=== PATIENT | female | born 1980 | race Caucasian/White ===

== ENCOUNTER 2020-12-15 01:28 | Emergency (ER) | payer OTHER, SELFPAY ==
--- NOTE | ~2020-12-15 | XR_ITS ---
EXAMINATION: LEFT ANKLE 3 VIEWS CLINICAL INFORMATION: Left ankle pain. COMPARISON: None. TECHNIQUE: AP, lateral, oblique views of the left ankle were obtained. FINDINGS: There are no fractures or dislocations. There is no significant soft tissue swelling. No ankle joint effusion is identified. XR/XR ankle LT min 3V IMPRESSION: Unremarkable left ankle radiographs.
[2020-12-15 01:33] VITALS: BP 114/68; PULSE 74; RESP 16; TEMP 36.6; O2SAT 100; BMI 23.8
--- NOTE | 2020-12-15 02:41 | ED_ITS ---
HPI - Extremity Injury (Lower) General Chief Complaint: Extremity Injury, Lower Stated Complaint: Foot Pain Time Seen by Provider: 12/15/20 02:38 Source: patient Mode of arrival: ambulatory History of Present Illness HPI Narrative: This is a 40-year-old female who states that she was in the shower when she twisted her left ankle with subsequent pain but denies any significant swelling. She is able to carefully walk on the foot and has no other complaints at this time. She states when she fell she did not hit her head and denies any loss of consciousness. Related Data Allergies Allergy/AdvReac Type Severity Reaction Status Date / Time aripiprazole [From ABILIFY] AdvReac Intermediate vomiting, Verified 12/15/20 01:32 GI Distress Review of Systems Review of Systems: Pertinent positives and negatives as stated in HPI 10 point review of systems is otherwise negative. [facility] Past Medical History Source: nursing notes reviewed Medical History Anxiety Bipolar disorder Depression PTSD (post-traumatic stress disorder) Surgical History H/O tubal ligation Hx of section Social History Social History Advance Directives: No Physical Exam Vital Signs: Vital Signs: Last Vital Signs Temp 97.9 F 12/15/20 01:33 Pulse 74 12/15/20 01:33 Resp 16 12/15/20 01:33 BP 114/68 12/15/20 01:33 Pulse Ox 100 12/15/20 01:33 Body Mass Index 23.8 VITAL SIGNS: Reviewed. GENERAL: Well developed, well nourished, in no acute distress. HEAD: Normocephalic/atraumatic, EYES: PERRLA, EOMI OROPHARYNX: no oral lesions noted, posterior pharynx clear NECK: Supple, no adenopathy LUNGS: Normal breath sounds. SpO2<100> CARDIOVASCULAR: Regular rate and rhythm without noted murmurs ABDOMEN: Soft, non-tender, non-distended with bowel sounds. LEFT ANKLE: No swelling noted, PT/DP palpable pulses, capillary refill less than 3 sec since, some tenderness noted to lateral malleolus without midfoot tenderness NEUROLOGIC: Alert and oriented x 4. Strength and sensation to light touch were grossly intact x 4. Course Course Course Narrative: This is a 40-year-old female with history and clinical presentation consistent with ankle sprain which was further supported by ankle x-ray that was negative for dislocation or fracture. Patient was treated with combination analgesics, an Giovani wrap was applied, and patient specifically requested crutches. She underwent crutch training and was discharged in stable condition with instructions to follow-up with her primary care provider. Discharge Plan Discharge Clinical Impression: Ankle sprain Qualifiers: Encounter type: initial encounter Involved ligament of ankle: unspecified ligament Laterality: left Qualified Code(s): S93.402A - Sprain of unspecified ligament of left ankle, initial encounter Patient Disposition: Home, Self-Care Instructions: Ankle Sprain (ED), Crutch Instructions (ED) Additional Instructions: Tylenol 1000 mg, orally, every 6 hours as needed for pain control. Do not exceed 4000 mg within 24 hours. Ibuprofen 400 mg, orally with milk or flu, every 6 hours as needed for pain control. Apply ice for 15-20 minutes, 3 to 4 times a day and keep foot elevated when possible. May walk as tolerated on your injured foot. Please follow-up with your primary care provider by calling the office tomorrow morning to set up a follow-up appointment. Referrals: Physician,None [Physician] - 2 days Interventions: ED Discharge Assessment Last Done: 12/15/20 03:33 Discharge Date/Time: 12/15/20 03:34
[2020-12-15] MEDS: Ibuprofen 400 MG TABLET PO (03:17)
[2020-12-15] MEDS: Acetaminophen 325 MG TABLET 975 MG PO (03:17)
== END 2020-12-15 03:34 | disposition home or self-care (01) ==
LOC: HO.ED 03:01
PROVIDERS: Emergency Provider Student in an Organized Health Care Education/Training Program
DX: S93.402A Sprain of unspecified ligament of left ankle, initial encounter (principal); X50.1XXA Overexertion from prolonged static or awkward postures, initial encounter; Y93.E1 Activity, personal bathing and showering; Y92.012 Bathroom of single-family (private) house as the place of occurrence of the external cause; Y99.9 Unspecified external cause status
CPT/HCPCS: 73610; 99283

== ENCOUNTER 2020-12-26 15:28 | Emergency (ER) | payer OTHER, SELFPAY ==
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
[2020-12-26 16:15] VITALS: BP 109/65; PULSE 59; RESP 16; TEMP 37.1; O2SAT 98; BMI 23.8
--- NOTE | 2020-12-26 16:41 | PC.NURSE ---
ABRASIONS TO KNEE CLEANSED WITH NS, COLD PACKS APPLIED ALSO COLD PACK TO NECK
[2020-12-26] MEDS: Cyclobenzaprine HCl 5 MG TABLET PO (16:45)
[2020-12-26] MEDS: Acetaminophen 325 MG TABLET 650 MG PO (16:45)
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
== END 2020-12-26 18:25 | disposition home or self-care (01) ==
PROVIDERS: Emergency Provider Emergency Medicine
DX: G89.11 Acute pain due to trauma (principal); M54.2 Cervicalgia; M25.562 Pain in left knee; M25.561 Pain in right knee; M54.5 Low back pain; S80.211A Abrasion, right knee, initial encounter; V43.62XA Car passenger injured in collision with other type car in traffic accident, initial encounter; Y93.89 Activity, other specified; Y92.414 Local residential or business street as the place of occurrence of the external cause; Y99.9 Unspecified external cause status; F41.9 Anxiety disorder, unspecified; F31.9 Bipolar disorder, unspecified; F43.10 Post-traumatic stress disorder, unspecified; Z79.899 Other long term (current) drug therapy; F12.90 Cannabis use, unspecified, uncomplicated
CPT/HCPCS: 70450; 72125; 73564; 99284

== ENCOUNTER 2022-04-21 00:59 | Emergency (ER) | payer OTHER, SELFPAY ==
[2022-04-21 01:05] VITALS: BP 108/54; PULSE 72; RESP 18; TEMP 36.7; O2SAT 98; BMI 26.6
--- NOTE | 2022-04-21 01:15 | ED_ITS ---
HPI - Female Genitourinary General Chief complaint: Abdominal Pain Stated complaint: UTI ? Time Seen by Provider: 04/21/22 01:07 Source: patient Mode of arrival: ambulatory Limitations: no limitations History of Present Illness HPI Narrative: Patient comes to the emergency room complaining burning sensation with urination. Patient denies dysuria, no flank pain, no fever or chills. Symptoms have been present since yesterday. Patient has had multiple UTIs in the past, states it feels similar. Related Data Previous Rx's Medication Instructions Recorded acetaminophen 500 mg tablet 500 mg PO Q6H PRN pain or fever 12/26/20 (Tylenol Extra Strength) #20 tabs cyclobenzaprine 5 mg tablet 5 mg PO Q8H PRN pain (scale score 12/26/20 7-10) 5 days #14 tabs lidocaine 5 % topical patch 1 patch topical DAILY PRN pain #30 12/26/20 (Lidoderm) ea naproxen 500 mg tablet 500 mg PO BID PRN pain 10 days #20 12/26/20 tabs phenazopyridine 100 mg tablet 100 mg PO TID 6 doses #6 tabs 04/21/22 Allergies Allergy/AdvReac Type Severity Reaction Status Date / Time aripiprazole [From ABILIFY] AdvReac Intermediate vomiting, Verified 12/15/20 01:32 GI Distress Review of Systems Review of Systems: Constitutional : No Weight loss, No Fever, No Chills, No Night Sweats, No Fatigue, No Malaise ENT/Mouth : No Hearing loss, No Ear Pain, No Nasal Congestion, No Sinus Pain, No Hoarseness, No sore throat, No Rhinorrhea, No Swallowing Difficulty Eyes: No Eye Pain, No Swelling, No Redness, No Foreign Body, No Discharge, No Vision Changes Cardiovascular : No Chest Pain, No SOB, No Dyspnea on Exertion, No Orthopnea, No Edema, No Palpitations Respiratory : No Cough, No Sputum, No Wheezing, No Smoke Exposure, No Dyspnea Gastrointestinal : No Nausea, No Vomiting, No Diarrhea, No Constipation, No abdominal Pain, No Hematochezia, No Melena Genitourinary : no irregular bleeding, complaining of Dysuria, No Urinary Frequency, No Hematuria, No Urinary Incontinence, No Urgency, No Flank Pain, No Urinary Flow Changes, No Hesitancy Musculoskeletal : No joint pain, No Myalgias, No Joint Swelling Skin : No Skin Lesions, No rash Neuro : No Weakness, No Numbness, No Paresthesias, No Loss of Consciousness, No Dizziness, No Headache Psych : No Anxiety/Panic, No Depression, No SI/HI/AH/VH, No Social Issues, Heme/Lymph: No Bruising, No Bleeding,No Lymphadenopathy Endocrine : No Polyuria, No Polydipsia, No Temperature Intolerance PMFSH Past Medical History Medical History Anxiety Bipolar disorder Depression PTSD (post-traumatic stress disorder) Surgical History H/O tubal ligation Hx of section Social History Social History Substance Use Type: Marijuana Advance Directives: No Advance Directives Information Provided: Yes Physical Exam Vital Signs: Vital Signs: Last Vital Signs Temp 98.0 F 04/21/22 01:05 Pulse 72 04/21/22 01:05 Resp 18 04/21/22 01:05 BP 108/54 L 04/21/22 01:05 Pulse Ox 98 04/21/22 01:05 O2 Del Method 04/21/22 01:05 BMI result Body Mass Index 26.6 Course Course Course Narrative: Patient's urinalysis is negative for UTI. Patient given phenazopyridine. MDM - Female Genitourinary Lab Data Labs: Lab Results 04/21/22 04/21/22 Range/Units 01:12 01:12 Urine Color YELLOW Urine Appearance CLEAR Urine pH 7.0 (5.0-8.0) Ur Specific [place] 1.020 (1.005-1.025) Urine Protein NEG (NEG-TRACE) MG/DL Urine Glucose (UA) NEG (NEG) MG/DL Urine Ketones NEG (NEG) MG/DL Urine Blood NEG (NEG) Urine Nitrite NEG (NEG) Ur Leukocyte Esterase NEG (NEG) Urine Test NEGATIVE (NEGATIVE) Discharge Plan Discharge Clinical Impression: Dysuria Patient Disposition: Home, Self-Care Instructions: Dysuria (ED) Additional Instructions: Please follow-up with your primary care physician tomorrow. If you have any worsening or new symptoms, please return to the emergency room or call 911 Prescriptions: New phenazopyridine 100 mg tablet 100 mg PO TID Qty: 6 0RF No Action acetaminophen [Tylenol Extra Strength] 500 mg tablet 500 mg PO Q6H PRN (Reason: pain or fever) Qty: 20 0RF lidocaine [Lidoderm] 5 % adhesive patch,medicated 1 patch topical DAILY MDD remove after 12 hours PRN (Reason: pain) Qty: 30 0R F Rx Instructions: leave on most painful area for up to 12 hrs naproxen 500 mg tablet 500 mg PO BID PRN (Reason: pain) 10 Days Qty: 20 0RF cyclobenzaprine 5 mg tablet 5 mg PO Q8H PRN (Reason: pain (scale score 7-10)) 5 Days Qty: 14 0RF
[2022-04-21 01:19] LABS: Color Urine YELLOW; Glucose Urine UA NEG (NEG); Leukocyte Esterase Urine NEG (NEG); Nitrite Urine NEG (NEG); Urine Blood NEG (NEG); Urine Ketones NEG (NEG); Urine Protein NEG (NEG-TRACE)
[2022-04-21 01:21] LABS: UPreg QC Valid YES; Urine Pregnancy NEGATIVE (NEGATIVE)
[2022-04-21 01:22] LABS: Appearance Urine CLEAR
[2022-04-21] MEDS: Phenazopyridine HCL 100 MG TABLET PO (01:35)
== END 2022-04-21 01:41 | disposition home or self-care (01) ==
PROVIDERS: Emergency Provider Emergency Medicine
DX: R30.0 Dysuria (principal); Z79.899 Other long term (current) drug therapy
CPT/HCPCS: 81003; 81025; 99283